=== PATIENT | female | born 1960 | race Caucasian/White ===

== ENCOUNTER 2021-09-09 01:47 | Day surgery (SDC) | payer OTHER, SELFPAY ==
[2021-08-25 14:49] VITALS: BMI 29.5
[2021-09-09 11:52] VITALS: BP 125/75; PULSE 62; RESP 18; TEMP 36.5; O2SAT 100
[2021-09-09] MEDS: LACTATED RINGERS 1,000 ML 150 ML IV CONT (12:05)
--- NOTE | 2021-09-09 12:26 | WPDGICN ---
Assessment and Plan Assessment and plan (1) Positive colorectal cancer screening using Cologuard test: Code(s): R19.5 - Other fecal abnormalities Status: Acute Assessment and Plan: Patient has had a positive Cologuard test for this reason colonoscopy will be performed to evaluate more thoroughly. This is suggestive of a higher chance of colon polyps being present. GI Consult Note Consult date/time: 09/09/21 12:26 HPI: Jose C Lara is a 61 year old female Presents for screening colonoscopy. Patient recently had a positive Cologuard screening test. For this reason referred for colonoscopy. She reports that her current weight appetite and bowel movements are normal. Patient denies abdominal pain. She has had no bleeding. her family history is noncontributory. Review of Systems Review of Systems: All systems reviewed & are unremarkable except as noted in HPI and below PMFSH Past Medical History Medical History Degenerative joint disease of right knee Social History Social History Smoking status: Never smoker Alcohol intake: current Alcohol use details: 2x monthly Living arrangements: with family Spiritual care concerns: No Meds Home Medications and Allergies Home Medications Medication Instructions Recorded Confirmed Type lorazepam 1 mg PO DAILY 08/25/21 09/09/21 History simvastatin 20 mg PO DAILY 08/25/21 09/09/21 History Allergies Allergy/AdvReac Type Severity Reaction Status Date / Time No Known Allergies Allergy Verified 09/09/21 11:51 Vital Signs Vital Signs - 24 hr 09/09/21 11:52 Temperature 97.7 F Pulse Rate 62 Respiratory Rate 18 Blood Pressure 125/75 Pulse Oximetry 100 Exam Narrative: Physical exam reveals patient be alert. Vital signs stable. HEENT exam is unremarkable. Patient is anicteric. Lungs are clear to auscultation and percussion. Heart is without murmur or extra sounds. Abdominal exam bowel sounds are present soft nontender with no hepatosplenomegaly. Digital external rectal exam is normal.
--- NOTE | 2021-09-09 12:30 | WPDANESEPPF ---
Anes - Initial Pre Proc Eval Procedure: Operation Date: 09/09/21 13:00 Proposed Procedures p Colonoscopy - Gera Bernal MD Date/Time: 09/09/21 12:30 Surgeon: Gera Bernal MD Pre Op Diagnosis: positive cologuard Patient Data Age: 61 Gender: F Height: 1.63 m Weight: 75.3 kg Last Vital Signs Temp 97.7 F 09/09/21 11:52 Pulse 62 09/09/21 11:52 Resp 18 09/09/21 11:52 BP 125/75 09/09/21 11:52 Pulse Ox 100 09/09/21 11:52 Allergies Allergy/AdvReac Type Severity Reaction Status Date / Time No Known Allergies Allergy Verified 09/09/21 11:51 Home Medications Medication Instructions Recorded Confirmed Type lorazepam 1 mg PO DAILY 08/25/21 09/09/21 History simvastatin 20 mg PO DAILY 08/25/21 09/09/21 History Patient hx anesthesia problems: none Family hx anesthesia problems: none Results Review: All pre-operative results and documents have been reviewed as part of the pre-operative evaluation. [facility] Past Medical History Medical History (Updated 09/09/21 @ 12:28 by Gera Bernal MD) Anxiety Degenerative joint disease of right knee Hyperlipidemia Social History Social History Smoking status: Never smoker Alcohol intake: current Alcohol use details: 2x monthly Living arrangements: with family Spiritual care concerns: No Anes - Eval Final PreProcedure Day of Procedure 09/09/21 12:30 Patient weight: overweight Heart: regular rate and rhythm Lungs: clear to auscultation Airway: Mallampati scale class II Neurological: alert and oriented Last oral intake: >/= 8 hours ASA classification: II Emergent: no Anesthetic plan: proceed Anesthesia type and monitoring: general GIVS and standard monitoring Results Review: All pre-operative results and documents have been reviewed as part of the pre-operative evaluation. Informed Consent: The patient's anesthetic plan and its attendant risks and benefits were discussed with the patient/family/POA. Questions were solicited and answers provided to the satisfaction of the patient/family/POA.
[2021-09-09 13:34] VITALS: BP 110/61; PULSE 66; RESP 17; O2SAT 100
[2021-09-09 13:44] VITALS: BP 108/73; PULSE 60; RESP 20; O2SAT 100
[2021-09-09 13:54] VITALS: BP 116/87; PULSE 48; RESP 23; O2SAT 100
== END 2021-09-09 14:05 | disposition home or self-care (01) ==
PROVIDERS: PCP Internal Medicine; Visit Provider Internal Medicine Gastroenterology
PROC: 0DJD8ZZ Inspection of Lower Intestinal Tract, Via Natural or Artificial Opening Endoscopic (ICD-10-PCS; CPT 45378; principal; 2021-09-09 13:00)
DX: R19.5 Other fecal abnormalities (principal); K64.8 Other hemorrhoids; K57.30 Diverticulosis of large intestine without perforation or abscess without bleeding; K63.5 Polyp of colon; F41.9 Anxiety disorder, unspecified; M17.11 Unilateral primary osteoarthritis, right knee; E78.5 Hyperlipidemia, unspecified
CPT/HCPCS: 45385; 88305; J2704; J7120

== ENCOUNTER → 2023-06-26 14:33 | Outpatient (CLI) | payer OTHER, SELFPAY ==
--- NOTE | ~2023-06-26 | XR_ITS ---
EXAMINATION: XR knee RT 3V DATE: 06/26/2023 15:01 INDICATION: Unilateral primary osteoarthritis, right knee. TECHNIQUE: 3 views of right knee were obtained. COMPARISON: Right knee radiographs 07/29/2020 FINDINGS: Bone alignment is normal. No fracture. There is severe osteoarthritis of medial and patello femoral compartments and mild osteoarthritis of lateral compartment. No knee joint effusion. IMPRESSION: 1. Severe right knee osteoarthritis. Reviewed, dictated and finalized at location A.
== END ==
PROVIDERS: PCP Physician Assistant Medical; Visit Provider Physician Assistant Medical
DX: M17.11 Unilateral primary osteoarthritis, right knee (principal)
CPT/HCPCS: 73562

== ENCOUNTER 2024-08-21 07:44 | Outpatient (CLI) | payer OTHER, SELFPAY ==
--- NOTE | ~2024-08-21 | US_ITS ---
EXAMINATION: US thyroid DATE: 08/21/2024 08:11 INDICATION: Iodine deficiency related diffuse (endemic) .goiter TECHNIQUE: Multiple ultrasound images of the thyroid were obtained. COMPARISON: None. FINDINGS: The right thyroid lobe measures 5.2 x 1.6 x 1.8 cm. The left thyroid lobe measures 5.6 x 1.2 x 1.7 c m. And 1 cm solid wider than tall isoechoic nodule with smooth to ill-defined margins and without ec hogenic foci in the left thyroid lobe (TI-RADS 3, mildly suspicious , FNA if >=2.5 cm, annual followu p is >1.5 cm). 1.6 cm TI-RADS 3 nodule with similar imaging features at the right thyroid lobe. Thyro id there are couple small solid hypoechoic nodules also with smooth to ill-defined margins and withou t echogenic foci echo (TI-RADS 4, moderately suspicious , FNA if >=1.5 cm, annual followup is >=1 cm) measuring 4 mm the isthmus and 4 mm at the left thyroid lobe. IMPRESSION: 1. Multinodular goiter including a couple 4 mm TI RADS 4 nodules and a couple TI RADS 3 nodules measu ring up to 1.6 cm for which annual ultrasound follow-up would be recommended. Reviewed, dictated and finalized at location A. IMPRESSION: 1. Multinodular goiter including a couple 4 mm TI RADS 4 nodules and a couple T I RADS 3 nodules measuring up to 1.6 cm for which annual ultrasound follow-up w ould be recommended.
== END 2024-08-21 07:45 | disposition home or self-care (01) ==
PROVIDERS: PCP Physician Assistant Medical; Visit Provider Physician Assistant Medical
DX: E04.2 Nontoxic multinodular goiter (principal)
CPT/HCPCS: 76536

== ENCOUNTER 2025-08-27 10:22 | Outpatient (CLI) | payer OTHER, SELFPAY ==
--- NOTE | ~2025-08-27 | US_ITS ---
EXAM/PROCEDURE: US thyroid HISTORY: E04.2 - Nontoxic multinodular goiter COMPARISON: August 21, 2024 TECHNIQUE: Thyroid ultrasound FINDINGS: Right lobe: 4.8 x 1.3 x 1.4 cm mid to lower pole right lobe nodule complex TI- RADS 4 mass is similar in appearance measuring 1.4 x 1.3 x 1.4 cm measured 1.6 x 1.2 x 1.3 centers on the previous exam. Left lobe: 4.9 x 1.4 x 1.3 cm is Complex nodule in the left lobe measures 6 x 6 x 5 mm. A slightly larger complex nodule also noted measuring 7 x 6 x 6 mm. IMPRESSION: 1. 1.4 cm TI-RADS 4 mass in the right lobe of the thyroid is smaller by measurement on today's exam. 2. Subcentimeter BI-RADS 3-4 lesions in the left lobe too small for tissue sampling. Continued surveillance recommended. Reviewed, dictated and finalized at location A. [employer] IMPRESSION: 1. 1.4 cm TI-RADS 4 mass in the right lobe of the thyroid is smaller by measure ment on today's exam. 2. Subcentimeter BI-RADS 3-4 lesions in the left lobe too small for tissue samp ling. Continued surveillance recommended.
== END 2025-08-27 10:23 | disposition home or self-care (01) ==
LOC: MICIMG 10:23
PROVIDERS: PCP Physician Assistant Medical; Visit Provider Physician Assistant Medical
DX: E04.2 Nontoxic multinodular goiter (principal)
CPT/HCPCS: 76536